=== PATIENT | female | born 1955 | race Caucasian/White ===

== ENCOUNTER 2016-09-14 17:27 | Outpatient (CLI) | payer BC ==
[2016-09-14 18:15] LABS: Bilirubin Negative (Negative); Blood, Urine Trace (Negative); Clarity Clear (Clear); Glucose, Urine (Dipstick) Negative (Negative); Leukocyte Trace (Negative); Nitrite Negative (Negative); Protein, Urine (Dipstick) Negative (Neg-Trace); Specific Gravity, Urine 1.015 (1.005-1.030); Urobilinogen 0.2 mg/dL (0.2-1.0)
== END 2016-09-14 17:28 | disposition home or self-care (01) ==
LOC: BURLAB 17:27
PROVIDERS: ATTEND Family Medicine
DX: N30.90 Cystitis, unspecified without hematuria (principal)
CPT/HCPCS: 81003; 87086

== ENCOUNTER 2019-01-31 11:26 | Emergency (ER) | payer BC ==
[2019-01-31] MEDS ORDERED: Promethazine HCl 25 MG SUPP ONE (12:04)
[2019-01-31] MEDS ORDERED: Albuterol Sulfate 1.25 MG/3 ML NEB ONE (12:04)
[2019-01-31] MEDS ORDERED: Azithromycin 250 MG TAB ONE (12:17)
--- NOTE | 2019-01-31 13:02 | RAD ---
XR Chest Pa Lat STANDARD HISTORY: Cough, fever COMPARISON: 09/17/2016 FINDINGS: The heart size is normal. The lungs are well expanded without focal areas of consolidation, pneumothorax or pleural effusions. Postop changes and metallic hardware in the lower cervical spine are again seen. IMPRESSION: No radiographic evidence of acute cardiopulmonary process.
== END 2019-01-31 12:30 | disposition home or self-care (01) ==
LOC: BURERS 11:26
DX: J18.9 Pneumonia, unspecified organism (principal); F32.9 Major depressive disorder, single episode, unspecified; Z79.899 Other long term (current) drug therapy
CPT/HCPCS: 71046

== ENCOUNTER 2020-04-11 00:12 | Emergency (ER) | payer BC ==
[2020-04-11] MEDS ORDERED: Boostrix 0.5 ML (Tdap) VIAL ONE (00:25)
[2020-04-11] MEDS ORDERED: Lidocaine 2% PF 5 ML VIAL ONE (00:39)
[2020-04-11] MEDS ORDERED: Bacitracin 1 PK ONE (00:42)
[2020-04-11] MEDS ORDERED: Amoxicillin/Potassium Clav 875 MG TAB ONE (01:09)
--- NOTE | 2020-04-11 07:36 | RAD ---
LEFT INDEX FINGER: Date: 04/11/2020 No fracture or opaque foreign body seen. Arthritic changes seen in the IP joints of the fingers, incl uding this index finger, especially the DIP joint. A small bony ossicle is seen at the PIP joint that is obviously longstanding. Severe degenerative changes are seen in the first carpometacarpal joint a nd between the scaphoid and the trapezium. There also appears to be a metallic foreign object embedde d in the base of the first metacarpal. Additionally, a second metallic object is seen in the second m etacarpal. Both of these may be postsurgical in nature. IMPRESSION: Degenerative changes, but no acute bony findings or foreign body. POS: HOME
== END 2020-04-11 01:55 | disposition home or self-care (01) ==
LOC: BURERS 00:12
DX: S61.211A Laceration without foreign body of left index finger without damage to nail, initial encounter (principal); R55 Syncope and collapse; Z79.899 Other long term (current) drug therapy; W54.0XXA Bitten by dog, initial encounter
CPT/HCPCS: 12001; 90471; 90715; J2001